=== PATIENT | female | born 1965 | race Caucasian/White ===

== ENCOUNTER 2018-03-13 11:19 | Observation (INO) ==
[2018-03-13 12:35] LABS: Baso % (Auto) 0.8 % (0.0-2.0); Eos # (Auto) 0.1 th/mm3 (0.0-0.4); Eos % (Auto) 1.6 % (0.0-4.0); Hematocrit 40.7 % (35.0-46.0); Hemoglobin 14.1 gm/dL (11.6-15.3); Lymph # (Auto) 2.6 th/mm3 (1.0-4.8); Lymph % (Auto) 43.5 % (9.0-44.0); Mean Corpuscular HGB Conc 34.7 % (32.0-36.0); Mean Corpuscular Volume 100.8 fL (80.0-100.0); Mean Platelet Volume 9.7 fL (7.0-11.0); Mono # (Auto) 0.5 th/mm3 (0.0-0.9); Mono % (Auto) 7.6 % (0.0-8.0); Neut # (Auto) 2.8 th/mm3 (1.8-7.7); Neut % (Auto) 46.5 % (16.0-70.0); Platelet Count 246 th/mm3 (150-450); Red Blood Count 4.04 mil/mm3 (4.00-5.30); Red Cell Distribution Width 14.6 % (11.6-17.2)
--- NOTE | 2018-03-13 12:44 | ED ---
HPI General Chief Complaint: Chest Pain Stated Complaint: Chest Pain Time Seen by Provider: 03/13/18 11:37 History of Present Illness HPI narrative: This is a 52-year-old female with a history of hypertension, dyslipidemia, who presents today with complaints of chest pain. Patient reportedly has been having palpitations and chest pain for several days now. She was scheduled to have a stress test done at [facility] cardiology. She states that when she arrived to have her stress test, they were doing a history and when she mentioned that she had chest pain yesterday, they sent her here for evaluation. The patient denies any chest pain at this time. She denies any shortness of breath. She reports that the pain was a 6-7 out of 10 on the pain scale. She reports it radiates to her left upper back and left neck. There is no nausea or diaphoresis. Related Data Home Medications Medication Instructions Recorded Confirmed atenolol 50 mg PO DAILY 03/13/18 03/13/18 atorvastatin 20 mg PO QPM 03/13/18 03/13/18 bupropion HCl 150 mg PO QAM 03/13/18 03/13/18 buspirone 15 mg PO TID 03/13/18 03/13/18 robefiqgcq-pmzhcuhdpeaia-pxkx 1 cap PO Q4H PRN 03/13/18 03/13/18 diazepam 2 mg PO BID PRN 03/13/18 03/13/18 hydrochlorothiazide 25 mg PO DAILY 03/13/18 03/13/18 meloxicam 7.5 mg PO DAILY 03/13/18 03/13/18 primidone 200 mg PO Q12H 03/13/18 03/13/18 Allergies Allergy/AdvReac Type Severity Reaction Status Date / Time aspirin Allergy Severe HIVES Verified 03/13/18 12:03 iodine Allergy Severe SWELLING Verified 03/13/18 12:03 morphine Allergy Severe ABDOMINAL Verified 03/13/18 12:03 PAINS potassium iodide Allergy Severe SWELLING Verified 03/13/18 12:03 povidone-iodine Allergy Severe SWELLING Verified 03/13/18 12:03 shellfish derived Allergy Severe swelling, Verified 03/13/18 12:03 throat swells sodium iodide Allergy Severe SWELLING Verified 03/13/18 12:03 sodium iodide Allergy Severe SWELLING Verified 03/13/18 12:03 hydromorphone Allergy Mild stomach Verified 03/13/18 12:03 cramps mushroom Allergy Mild GI UPSET Verified 03/13/18 12:03 codeine AdvReac Severe STOMACH Verified 03/13/18 12:03 CRAMPING Review of Systems ROS: all other systems reviewed are negative Constitutional Denies chills and Denies fever(s) Eyes Reports system reviewed and no additional complaints, except [facility] E[facility] Reports system reviewed and no additional complaints, except as [facility] Cardiovascular Reports chest pain, Denies diaphoresis, Denies irregular heart rhythm and Denies dyspnea Respiratory Denies chest congestion, Denies cough and Denies dyspnea Gastrointestinal Denies abdominal pain, Denies nausea and Denies vomiting Genitourinary Reports system reviewed and no additional complaints, except as [facility] Musculoskeletal Reports system reviewed and no additional complaints, except as [facility] Neurologic Reports system reviewed and no additional complaints, except as [facility] Medical History Medical History Chest pain (Acute) Cholecystectomy planned (Acute) Hypertension (Acute) Migraines (Acute) Tremors of nervous system (Acute) Surgical History Surgical History Previous back surgery (Acute) Social History Social History Substance History: No History of Abuse Second Hand Smoke Exposure: Yes Smoking Status: Current every day smoker Tobacco Type: Cigarettes How Often Do You Have a Drink Containing Alcohol: 2 to 4 times a month Recent Travel in [facility] within the Last 8 Weeks: No Recent Out of Country Travel within the Last 8 Weeks: No Immunization History Tetanus Immunization: Unsure Exam Narrative Exam Narrative: GENERAL: Well-developed well-nourished female in no acute respiratory distress. SKIN: Focused skin assessment warm/dry. HEAD: Atraumatic. Normocephalic. EYES: No scleral icterus. No injection or drainage. ENT: No nasal bleeding or discharge. Mucous membranes pink and moist. NECK: Trachea midline. No JVD. CARDIOVASCULAR: Sinus bradycardia with a rate in the 50s. No murmur appreciated. RESPIRATORY: No accessory muscle use. Clear to auscultation. Breath sounds equal bilaterally. GASTROINTESTINAL: Abdomen soft, non-tender, nondistended. MUSCULOSKELETAL: No obvious deformities. No clubbing. No cyanosis. No edema. NEUROLOGICAL: Awake and alert. No obvious cranial nerve deficits. Motor grossly within normal limits. Normal speech. Course Initial Documented Vital Signs Temperature 98.5 F 03/13/18 11:29 Pulse Rate 51 L 03/13/18 11:29 Respiratory Rate 18 03/13/18 11:29 Blood Pressure 174/77 H 03/13/18 11:29 Pulse Oximetry 97 03/13/18 11:29 Last Documented Vital Signs Temperature 97.9 F 03/14/18 12:00 Pulse Rate 63 03/14/18 13:00 Respiratory Rate 20 03/14/18 13:00 Blood Pressure 127/65 03/14/18 13:00 Pulse Oximetry 98 03/14/18 13:00 Medical Decision Making MDM Narrative Medical decision making narrative: 52-year-old female presents today after being sent here by [facility] cardiology. Patient was apparently scheduled to have a stress test there however had mentioned that she had chest pain the previous day. The patient was sent here for rule out and chest pain center admission. Patient's cardiac enzymes are negative. She will be admitted to the chest pain center. Case was discussed with HIRA Morales for the chest pain center. Medical Screen Exam Complete: Yes Emergency Medical Condition: Yes Differential Diagnosis Differential Diagnosis: ACS versus muscular skeletal pain versus pulmonary embolus Lab Data Result diagrams: 03/13/18 12:03 03/13/18 12:03 Lab Results 03/13/18 03/13/18 03/13/18 Range/Units 12:03 12:03 16:43 WBC 6.0 (4.0-11.0) th/mm3 RBC 4.04 (4.00-5.30) mil/mm3 Hgb 14.1 (11.6-15.3) gm/dL Hct 40.7 (35.0-46.0) % MCV 100.8 H (80.0-100.0) fL MCH 35.0 H (27.0-34.0) pg MCHC 34.7 (32.0-36.0) % RDW 14.6 (11.6-17.2) % Plt Count 246 (150-450) th/mm3 MPV 9.7 (7.0-11.0) fL Neut % (Auto) 46.5 (16.0-70.0) % Lymph % (Auto) 43.5 (9.0-44.0) % Arroyo % (Auto) 7.6 (0.0-8.0) % Eos % (Auto) 1.6 (0.0-4.0) % Baso % (Auto) 0.8 (0.0-2.0) % Neut # (Auto) 2.8 (1.8-7.7) th/mm3 Lymph # (Auto) 2.6 (1.0-4.8) th/mm3 Arroyo # (Auto) 0.5 (0.0-0.9) th/mm3 Eos # (Auto) 0.1 (0.0-0.4) th/mm3 Baso # (Auto) 0.0 (0.0-0.2) th/mm3 WBC Differential . Differential Comment Auto diff final PT (9.8-11.6) sec INR Ratio D-Dimer Quant (PE/DVT) (0.00-0.50) mg/L FEU Sodium 138 (136-145) meq/L Potassium 4.1 (3.5-5.1) meq/L Chloride 105 (98-107) meq/L Carbon Dioxide 25.4 (21.0-32.0) meq/L Anion Gap 8 (5-15) meq/L BUN 18 (7-18) mg/dL Creatinine 0.81 (0.50-1.00) mg/dL Estimated GFR 74 L (>89) mL/min Random Glucose 94 (74-106) mg/dL Calcium 9.1 (8.5-10.1) mg/dL Magnesium 2.2 (1.5-2.5) mg/dL Total Bilirubin 0.2 (0.2-1.0) mg/dL AST 21 (15-37) U/L ALT 40 (10-53) U/L Alkaline Phosphatase 93 (45-117) U/L Total Creatine Kinase 54 70 (26-192) U/L Troponin I Less than 0.02 L Less than 0.02 L (0.02-0.05) ng/mL Total Protein 6.9 (6.4-8.2) g/dL Albumin 4.0 (3.4-5.0) g/dL Triglycerides (42-150) mg/dL Cholesterol (120-200) mg/dL LDL Cholesterol, Calc (0-99) mg/dL HDL Cholesterol (40.0-60.0) mg/dL Cholesterol/HDL Ratio Ratio TSH 1.320 (0.358-3.740) uIU/mL Nasal Screen MRSA (PCR) (Negative) 03/13/18 03/13/18 03/13/18 Range/Units 16:43 16:43 16:43 WBC (4.0-11.0) th/mm3 RBC (4.00-5.30) mil/mm3 Hgb (11.6-15.3) gm/dL Hct (35.0-46.0) % MCV (80.0-100.0) fL MCH (27.0-34.0) pg MCHC (32.0-36.0) % RDW (11.6-17.2) % Plt Count (150-450) th/mm3 MPV (7.0-11.0) fL Neut % (Auto) (16.0-70.0) % Lymph % (Auto) (9.0-44.0) % Arroyo % (Auto) (0.0-8.0) % Eos % (Auto) (0.0-4.0) % Baso % (Auto) (0.0-2.0) % Neut # (Auto) (1.8-7.7) th/mm3 Lymph # (Auto) (1.0-4.8) th/mm3 Arroyo # (Auto) (0.0-0.9) th/mm3 Eos # (Auto) (0.0-0.4) th/mm3 Baso # (Auto) (0.0-0.2) th/mm3 WBC Differential Differential Comment PT 10.0 (9.8-11.6) sec INR 1.0 Ratio D-Dimer Quant (PE/DVT) Less than 0.19 (0.00-0.50) mg/L FEU Sodium (136-145) meq/L Potassium (3.5-5.1) meq/L Chloride (98-107) meq/L Carbon Dioxide (21.0-32.0) meq/L Anion Gap (5-15) meq/L BUN (7-18) mg/dL Creatinine (0.50-1.00) mg/dL Estimated GFR (>89) mL/min Random Glucose (74-106) mg/dL Calcium (8.5-10.1) mg/dL Magnesium Cancelled (1.5-2.5) mg/dL Total Bilirubin (0.2-1.0) mg/dL AST (15-37) U/L ALT (10-53) U/L Alkaline Phosphatase (45-117) U/L Total Creatine Kinase (26-192) U/L Troponin I Cancelled (0.02-0.05) ng/mL Total Protein (6.4-8.2) g/dL Albumin (3.4-5.0) g/dL Triglycerides (42-150) mg/dL Cholesterol (120-200) mg/dL LDL Cholesterol, Calc (0-99) mg/dL HDL Cholesterol (40.0-60.0) mg/dL Cholesterol/HDL Ratio Ratio TSH (0.358-3.740) uIU/mL Nasal Screen MRSA (PCR) (Negative) 03/13/18 03/14/18 03/14/18 Range/Units 21:10 06:39 08:27 WBC (4.0-11.0) th/mm3 RBC (4.00-5.30) mil/mm3 Hgb (11.6-15.3) gm/dL Hct (35.0-46.0) % MCV (80.0-100.0) fL MCH (27.0-34.0) pg MCHC (32.0-36.0) % RDW (11.6-17.2) % Plt Count (150-450) th/mm3 MPV (7.0-11.0) fL Neut % (Auto) (16.0-70.0) % Lymph % (Auto) (9.0-44.0) % Arroyo % (Auto) (0.0-8.0) % Eos % (Auto) (0.0-4.0) % Baso % (Auto) (0.0-2.0) % Neut # (Auto) (1.8-7.7) th/mm3 Lymph # (Auto) (1.0-4.8) th/mm3 Arroyo # (Auto) (0.0-0.9) th/mm3 Eos # (Auto) (0.0-0.4) th/mm3 Baso # (Auto) (0.0-0.2) th/mm3 WBC Differential Differential Comment PT (9.8-11.6) sec INR Ratio D-Dimer Quant (PE/DVT) (0.00-0.50) mg/L FEU Sodium (136-145) meq/L Potassium (3.5-5.1) meq/L Chloride (98-107) meq/L Carbon Dioxide (21.0-32.0) meq/L Anion Gap (5-15) meq/L BUN (7-18) mg/dL Creatinine (0.50-1.00) mg/dL Estimated GFR (>89) mL/min Random Glucose (74-106) mg/dL Calcium (8.5-10.1) mg/dL Magnesium (1.5-2.5) mg/dL Total Bilirubin (0.2-1.0) mg/dL AST (15-37) U/L ALT (10-53) U/L Alkaline Phosphatase (45-117) U/L Total Creatine Kinase 53 (26-192) U/L Troponin I Less than 0.02 L (0.02-0.05) ng/mL Total Protein (6.4-8.2) g/dL Albumin (3.4-5.0) g/dL Triglycerides 155 H (42-150) mg/dL Cholesterol 162 (120-200) mg/dL LDL Cholesterol, Calc 65 (0-99) mg/dL HDL Cholesterol 66.3 H (40.0-60.0) mg/dL Cholesterol/HDL Ratio 2.44 Ratio TSH (0.358-3.740) uIU/mL Nasal Screen MRSA (PCR) Not detected (Negative) Imaging Data Radiologist's impression: Chest X-Ray 03/13/18 11:51 CONCLUSION: No acute cardiopulmonary disease. Discharge Plan Discharge Disposition Patient Disposition: ED Admit(ED Internal Use Only) Discharge Condition Condition: Stable Discharge Order Discharge Orders: Discharge Order (Routine); Ordered 03/14/18 Ordered By: Lesley Eagle Cardiology Clear for Discharge (Routine); Ordered 03/13/18 Ordered By: Quincy Amaya ED Use Only Admit Order (Routine); Ordered 03/13/18 Ordered By: Roger Mancuso Discharge Details Diagnosis: Chest pain, Tobacco abuse, Hypertension, Hyperlipidemia Physicians Team ED Provider: Roger Mancuso Primary Care Provider: Michelle Rico Attending Provider: Jeanmarie Johnson Other Providers: Quincy Amaya Discharge Interventions Interventions: ED Discharge Assessment Last Done: 03/13/18 15:59 Status ED Status: Admitted Observation Patient Discharge Information Discharge Date/Time: 03/13/18 23:21
[2018-03-13 12:53] LABS: Anion Gap 8 meq/L (5-15); Aspartate Aminotransferase 21 U/L (15-37); Blood Urea Nitrogen 18 mg/dL (7-18); Calcium 9.1 mg/dL (8.5-10.1); Carbon Dioxide 25.4 meq/L (21.0-32.0); Chloride 105 meq/L (98-107); Glomerular Filtration Rate 74 mL/min (>89); Glucose,Random 94 mg/dL (74-106); Potassium 4.1 meq/L (3.5-5.1); Sodium 138 meq/L (136-145)
--- NOTE | 2018-03-13 13:03 | XR ---
EXAM DATE: 03/13/2018 1:00 PM EST AGE/SEX: 52 years / Female INDICATIONS: Shortness of breath, nausea, middle to left sided chest pain. patient also complains of pain in neck and left sided back pain. CLINICAL DATA: This is the patient's initial encounter. Patient reports that signs and symptoms have been present for 1 day and indicates a pain score of 6/10. MEDICAL/SURGICAL HISTORY: None. None. COMPARISON: [facility] [place], CHEST SINGLE AP, 12/19/2014. . FINDINGS: The lungs are clear without infiltrate, nodule, or mass. There is no appreciable pleural effusion for technique. Heart and mediastinum are unremarkable. CONCLUSION: No acute cardiopulmonary disease. Electronically signed by: Andrea Egan MD Board Certified Radiologist 03/13/2018 1:02 PM EST
[2018-03-13 13:04] LABS: Alanine Aminotransferase 40 U/L (10-53); Alkaline Phosphatase 93 U/L (45-117); Total Protein 6.9 g/dL (6.4-8.2)
[2018-03-13 13:05] LABS: Creatine Kinase 54 U/L (26-192)
--- NOTE | 2018-03-13 15:21 | P.HPCA ---
History of Present Illness Primary Care Physician: Michelle Rico MD Chief Complaint: Chest pain History of Present Illness: This is a 52-year-old female with history of hypertension, hyperlipidemia, chronic neck and back pain, and tobacco abuse that presents to ED to be evaluated for chest discomfort. Patient was at her damage inside adjuster office (Dr. Faulkner )today for stress test when had told staff that she was having chest discomfort and 2 days prior was having even more intense chest discomfort. States she was referred to her damage inside adjuster secondary to having intermittent chest discomfort for the last 2 months. Initially was occurring maybe a couple times a week but more recently is been occurring almost daily. Found nothing in particular to bring on the discomfort. At times she is short of breath and nauseous. Denies diaphoresis. States she also had a Holter monitor placed and was removed last Friday and is awaiting report from that. She has had stress test in the past. Last stress test at this facility was in 2013 and was nonischemic. History of hypertension, hyperlipidemia, chronic neck/back pain, hypothyroidism , and tobacco abuse. Denies diabetes and known CAD. She states that her mother had onset coronary disease in her 50s and at age 81 and was cardiac related. Patient continues smoke about 1/2 pack of cigarettes daily and has done so for about 35 years. Has occasional alcohol. Denies illicit drug use. - Diagnosis (1) Chest pain (2) Hypertension (3) Hyperlipidemia (4) Chronic neck and back pain (5) Tobacco abuse Review of Systems General: Patient denies fevers, chills, and recent travel. HEENT: Patient denies headache, sore throat, difficulty swallowing. Cardiovascular: Has the chest discomfort as mentioned above. Denies sensation of heart beating rapidly or irregularly. No syncope. Denies diaphoresis. Respiratory: Occasional shortness of breath. Denies inspirational chest discomfort. Denies coughing wheezing or hemoptysis. GI: Occasional nausea. Patient denies vomiting, diarrhea, abdominal pain, bloody stools. Musculoskeletal: Patient denies joint pain or edema. Denies calf pain or edema. Neurovascular: Patient denies numbness, tingling, weakness in extremities. Denies headache. Endocrine: Denies polyuria and polydipsia. Hematologic: Denies easy bruising. Skin: Denies rash or itching. PMFSH - History History Provided By: Patient - Medical History Medical History: Medical History (Last Updated 03/13/18 @ 11:37 by Jayashree Martini) Chest pain Cholecystectomy planned Hypertension Migraines Tremors of nervous system - Surgical History Surgical History: Surgical History (Last Updated 03/13/18 @ 11:37 by Jayashree Martini) Previous back surgery - Tobacco History Second Hand Smoke Exposure: Yes Tobacco Use In Past 30 Days: Yes Smoking Status: Current every day smoker Tobacco Type: Cigarettes - Alcohol History How Often Do You Have a Drink Containing Alcohol: Monthly or less - Substance Use History Substance History: No History of Abuse - Travel History Recent Travel in the [place] Within the Last 8 Weeks: No Recent Travel Out of the Country Within the Last 8 Weeks: No - Immunization History Tetanus Immunization: Unsure Medications and Allergies Active Medications: Active Medications Sodium Chloride (Ns Flush) 2 ml IV.FLUSH UNSCH PRN PRN Reason: FLUSH AFTER USING IV ACCESS Allergies Allergy/AdvReac Type Severity Reaction Status Date / Time aspirin Allergy Severe HIVES Verified 03/13/18 12:03 iodine Allergy Severe SWELLING Verified 03/13/18 12:03 morphine Allergy Severe ABDOMINAL Verified 03/13/18 12:03 PAINS potassium iodide Allergy Severe SWELLING Verified 03/13/18 12:03 povidone-iodine Allergy Severe SWELLING Verified 03/13/18 12:03 shellfish derived Allergy Severe swelling, Verified 03/13/18 12:03 throat swells sodium iodide Allergy Severe SWELLING Verified 03/13/18 12:03 sodium iodide Allergy Severe SWELLING Verified 03/13/18 12:03 hydromorphone Allergy Mild stomach Verified 03/13/18 12:03 cramps mushroom Allergy Mild GI UPSET Verified 03/13/18 12:03 codeine AdvReac Severe STOMACH Verified 03/13/18 12:03 CRAMPING Home Medications Medication Instructions Recorded Confirmed Type atenolol 50 mg PO DAILY 03/13/18 03/13/18 History atorvastatin 20 mg PO QPM 03/13/18 03/13/18 History bupropion HCl 150 mg PO QAM 03/13/18 03/13/18 History buspirone 15 mg PO TID 03/13/18 03/13/18 History agmxwipizy-csyoheqiacfgv-kvbr 1 cap PO Q4H PRN 03/13/18 03/13/18 History diazepam 2 mg PO BID PRN 03/13/18 03/13/18 History hydrochlorothiazide 25 mg PO DAILY 03/13/18 03/13/18 History primidone 200 mg PO Q12H 03/13/18 03/13/18 History Exam Vital signs: Vital Signs 03/13/18 11:29 03/13/18 11:40 03/13/18 13:28 Temperature 98.5 F Pulse Rate 51 L 54 L Respiratory Rate 18 18 18 Blood Pressure 174/77 H 144/73 H Pulse Oximetry 97 97 03/13/18 14:37 03/13/18 14:39 Temperature Pulse Rate 52 L Respiratory Rate 21 Blood Pressure 141/73 H Pulse Oximetry 100 Intake & Output 03/12/18 03/13/18 03/13/18 18:59 06:59 18:59 Weight 98.883 kg Narrative: GENERAL: This is a well-nourished, well-developed patient, in no apparent distress. Patient speaks in clear complete sentences. Patient is pleasant. HEENT: Head is atraumatic and normocephalic. Neck is supple without lymphadenopathy and trachea is midline. No JVD or carotid bruits. CARDIOVASCULAR: Regular rate and rhythm without murmurs, gallops, or rubs. RESPIRATORY: Clear to auscultation. Breath sounds equal bilaterally. No wheezes , rales, or rhonchi. Chest wall is nontender. No use of accessory muscles. GASTROINTESTINAL: Abdomen is nontender, nondistended. Abdomen soft. No obvious pulsatile mass or bruit. No CVA tenderness. Strong femoral pulses bilaterally. Normal bowel sounds in all quadrants. MUSCULOSKELETAL: Patient is moving upper and lower extremities freely. No calf tenderness or edema, no Homans sign. Strong pulses in upper and lower extremities. NEUROLOGICAL: Patient is alert and oriented. Cranial nerves 2-12 are grossly intact. No focal deficits and speech is clear. SKIN: No rash and turgor is normal. Results 03/13/18 12:03 03/13/18 12:03 Cardiac Enzymes 03/13/18 Range/Units 12:03 AST 21 (15-37) U/L Troponin I Less than 0.02 L (0.02-0.05) ng/mL CBC 03/13/18 Range/Units 12:03 WBC 6.0 (4.0-11.0) th/mm3 RBC 4.04 (4.00-5.30) mil/mm3 Hgb 14.1 (11.6-15.3) gm/dL Hct 40.7 (35.0-46.0) % Plt Count 246 (150-450) th/mm3 Neut # (Auto) 2.8 (1.8-7.7) th/mm3 Lymph # (Auto) 2.6 (1.0-4.8) th/mm3 Ceiba # (Auto) 0.5 (0.0-0.9) th/mm3 Eos # (Auto) 0.1 (0.0-0.4) th/mm3 Baso # (Auto) 0.0 (0.0-0.2) th/mm3 Comprehensive Metabolic Panel 03/13/18 Range/Units 12:03 Sodium 138 (136-145) meq/L Potassium 4.1 (3.5-5.1) meq/L Chloride 105 (98-107) meq/L Carbon Dioxide 25.4 (21.0-32.0) meq/L BUN 18 (7-18) mg/dL Creatinine 0.81 (0.50-1.00) mg/dL Calcium 9.1 (8.5-10.1) mg/dL AST 21 (15-37) U/L ALT 40 (10-53) U/L Alkaline Phosphatase 93 (45-117) U/L Total Protein 6.9 (6.4-8.2) g/dL Albumin 4.0 (3.4-5.0) g/dL Intake and Output 03/13/18 03/13/18 03/13/18 06:59 14:59 22:59 Other: Weight 98.883 kg Patient Weight 03/14/18 06:59 Weight 98.883 kg - Imaging and Cardiology Imaging: Impressions Chest X-Ray 03/13/18 11:51 CONCLUSION: No acute cardiopulmonary disease. EKG interpretations - EKG EKG shows: bradycardia (Initial EKG sinus bradycardia rate of [address] segment depressions or elevations.) Caprini VTE Risk Assessment Caprini VTE Risk Assessment: No/Low Risk (score <= 1) Caprini Risk Assessment Model: Point Value = 1 Point Value = 2 Point Value = 3 Point Value = 5 Age 41-60 Minor surgery BMI > 25 kg/m2 Swollen legs Varicose veins or History of unexplained or recurrent spontaneous Oral contraceptives or hormone replacement Sepsis (< 1 month) Serious lung disease, including pneumonia (< 1 month) Abnormal pulmonary function Acute myocardial infarction Congestive heart failure (< 1 month) History of inflammatory bowel disease Medical patient at bed rest Age 61-74 Arthroscopic surgery Major open surgery (> 45 min) Laparoscopic surgery (> 45 min) Malignancy Confined to bed (> 72 hours) Immobilizing plaster cast Central venous access Age >= 75 History of VTE Family history of VTE Factor V Leiden Prothrombin [id number] Lupus anticoagulant Anticardiolipin antibodies Elevated serum homocysteine Heparin-induced thrombocytopenia Other congenital or acquired thrombophilia Stroke (< 1 month) Elective arthroplasty Hip, pelvis, or leg fracture Acute spinal cord injury (< 1 month) Prophylaxis Regimen: Total Risk Factor Score Risk Level Prophylaxis Regimen 0-1 Low Early ambulation 2 Moderate Order ONE of the following: *Sequential Compression Device (SCD) *Heparin 5000 units SQ BID 3-4 Higher Order ONE of the following medications: *Heparin 5000 units SQ TID *Enoxaparin/Lovenox 40 mg SQ daily (WT < 150 kg, CrCl > 30 mL/min) *Enoxaparin/Lovenox 30 mg SQ daily (WT < 150 kg, CrCl > 10-29 mL/min) *Enoxaparin/Lovenox 30 mg SQ BID (WT < 150 kg, CrCl > 30 mL/min) AND/OR *Sequential Compression Device (SCD) 5 or more Highest Order ONE of the following medications: *Heparin 5000 units SQ TID (Preferred with Epidurals) *Enoxaparin/Lovenox 40 mg SQ daily (WT < 150 kg, CrCl > 30 mL/min) *Enoxaparin/Lovenox 30 mg SQ daily (WT < 150 kg, CrCl > 10-29 mL/min) *Enoxaparin/Lovenox 30 mg SQ BID (WT < 150 kg, CrCl > 30 mL/min) AND *Sequential Compression Device (SCD) Assessment and Plan - Assessment (1) Chest pain Code(s): R07.9 - Chest pain, unspecified Status: Acute (2) Hypertension Code(s): I10 - Essential (primary) hypertension Status: Acute (3) Hyperlipidemia Code(s): E78.5 - Hyperlipidemia, unspecified Status: Acute (4) Chronic neck and back pain Code(s): M54.2 - Cervicalgia; M54.9 - Dorsalgia, unspecified; G89.29 - Other chronic pain Status: Acute (5) Tobacco abuse Code(s): Z72.0 - Tobacco use Status: Acute - Plan * Chest pain: Patient has had first set of cardiac enzymes and EKGs and has been seen by Dr. Israel Molina of cardiology in the chest pain center. Her EKG is okay and first troponin is normal after having an extended period of time of chest discomfort. * Hypertension: She cannot recall the name of the medication that she takes but states that it does control her blood pressure. She should resume this. * Hyperlipidemia: Resume her medication. * Chronic neck and back pain: Continue her medication. * Tobacco abuse: Patient counseled on the importance of smoking cessation. Patient is stable at this time. She is agreeable to this plan. Patient developed worsening chest discomfort, shortness of breath, diaphoresis from walking from OD to the stress room in [facility]. She was reevaluated. Patient will now be admitted to medicine with consult to cardiology for likely cardiac catheterization. Amlodipine, beta-xena, nitro ointment, statin, and aspirin will be started.
[2018-03-13] MEDS ORDERED: ALPRAZolam 0.25 MG Tablet PO PRN (15:35)
[2018-03-13] MEDS ORDERED: diazePAM 2 MG Tablet PO PRN (15:44)
[2018-03-13 17:36] LABS: Creatine Kinase 70 U/L (26-192)
[2018-03-13 17:41] LABS: Magnesium 2.2 mg/dL (1.5-2.5)
[2018-03-13] MEDS ORDERED: BUSPIRONE 15 MG PO SCH (18:00)
[2018-03-13] MEDS: buPROPion 150 MG 12 HR Tablet PO SCH (18:13)
[2018-03-13] MEDS: Primidone 50 MG Tablet PO SCH ×2 (18:13→22:56)
[2018-03-13] MEDS: amLODIPine 5 MG Tablet PO SCH (18:13)
[2018-03-13] MEDS: Metoprolol Tartrate 25 MG Tablet PO SCH (18:13)
[2018-03-13] MEDS ORDERED: Iohexol 350 MG/ML 50 ML Vial (for Cath Lab) IVCONTRAST ONE (18:30)
--- NOTE | 2018-03-13 18:36 | MB ---
cc: Quincy Amaya MD DATE: 03/13/2018 REASON FOR CONSULTATION: Cardiac catheterization. HISTORY OF PRESENT ILLNESS: The patient is a 52-year-old white female, followed in the office by Dr. Benji Faulkner, with a history of hypertension and hyperlipidemia, who was sent to the hospital today due to ongoing chest discomfort. She was to undergo a stress test when she told staff that she was having ongoing chest discomfort, so she was sent to the hospital for further evaluation and treatment. For about the past 8 weeks, she has had occasional episodes of substernal and left parasternal chest discomfort described as "sharp and pressure." The longest episode lasted 6 hours, 2 days ago. Associated symptoms include shortness of breath and nausea without diaphoresis. Exertion inconsistently precipitates the chest discomfort. She denies pleurisy, syncope, or near syncope. Infrequently, she experiences fleeting fluttering palpitations. Occasionally, she experiences dependent edema. At times, she has had mild transient lightheadedness. PAST MEDICAL HISTORY: 1. Hypertension. 2. Hyperlipidemia. 3. Migraine headaches. PAST SURGICAL HISTORY: Cholecystectomy. HOME CARDIAC MEDICATIONS: 1. Hydrochlorothiazide 25 mg daily. 2. Atorvastatin 20 mg at bedtime. 3. Tenormin 50 mg daily. ALLERGIES: ASPIRIN, IODINE, MORPHINE, SHELLFISH, HYDROMORPHONE, CODEINE. FAMILY HISTORY: The patient's mother sustained a number of myocardial infarctions beginning in her 40s. SOCIAL HISTORY: The patient smokes a little less than 1/2 pack of cigarettes per day. She denies drug or alcohol abuse. REVIEW OF SYSTEMS: As in the history of present illness. Otherwise, negative or noncontributory. She currently denies headache, abdominal pain, melena, dyspepsia, bright red blood per rectum. PHYSICAL EXAMINATION: VITAL SIGNS: Her blood pressure is 139/72 with a pulse of 50, respirations 20. GENERAL: She is a well-developed, well-nourished white female, in no acute distress. NECK: Jugular venous pressure is normal. Carotid pulses are 2+ bilaterally and without bruits. CHEST: Clear lungs mayberry. CARDIAC: She has a bradycardic, regular rhythm without S3, S4, or murmur. ABDOMEN: She has a soft, nontender abdomen. Bowel sounds are present. There is no definite hepatosplenomegaly. EXTREMITIES: No clubbing, cyanosis, or edema. Peripheral pulses are normal throughout. LABORATORY DATA: EKG shows sinus bradycardia. Otherwise, normal EKG. Chest x-ray shows no acute disease. LABORATORY DATA: Normal CBC, normal basic metabolic profile, negative cardiac enzymes. IMPRESSION: Symptoms suggestive of ongoing and unstable angina in this 52-year-old white female with a history of a number of risk factors for coronary artery disease including hypertension, hyperlipidemia, tobacco abuse, family history. I have been asked to see the patient for possible cardiac catheterization. At this point, I would agree with the need for this test. She has had a number of symptoms in the past few days suggestive of angina at rest including prolonged episodes. The nature of cardiac catheterization and the potential risks including, but not limited to , myocardial infarction, stroke, arrhythmia, bleeding, infection, and renal failure have been outlined to the patient. She agrees to proceed. RECOMMENDATIONS: Proceed with cardiac catheterization today. MD KASSANDRA Camejo/miky , 05:54 PM , 06:03 PM MTDTeresa
[2018-03-13] MEDS ORDERED: Heparin/NS PF Inj 1,000 ML ONE (18:39)
[2018-03-13] MEDS ORDERED: fentaNYL Citrate Inj 100 MCG/2 ML Ampul ONE (18:39)
[2018-03-13] MEDS ORDERED: Heparin 10,000 UNITS/10 ML Vial (for IV use) ONE (18:40)
[2018-03-13] MEDS ORDERED: Famotidine PF Inj 20 MG/2 ML Vial ONE (18:40)
[2018-03-13] MEDS ORDERED: Hydrocortisone Sod Succinate 100 MG Vial ONE (18:40)
--- NOTE | 2018-03-13 20:32 | CATHPROC ---
[employer] HIS Report Study Information Study Number Admission Scheduled Start Study Start [id number] Mar 13 2018 2:00PM 03/13/2018 Mar 13 2018 6:11PM Study Type Yeoman Service Left/Possible PCI Cardiac Catheterization Admit Source Facility Department Emergency department [facility] Recreational Counselor Physician and Clinical Staff Initial Quincy Borrego Mill Hand Martha Allred,MINNIE Mill Handnatalie Aggarwal RN, Walter Mill HandTeena Lara,MINNIE Recorder Oanh Álvarze,FINANCIAL BUSINESS ANALYST TECH2 Scrub Jennifer Coyle,RT(R) (BS) Procedures Performed Procedure Location (Site) Vessel Name Coronary Angiograms LCA Left Coronary Coronary Angiograms RCA Right Coronary LV Gram-hand inj. LV LV Ventricle Equipment Time Road Hogger Operator Description Size Mfg Part Number Used/Scraped TRANSDUCER, TRUWAVE [id number] 18:19 [employer] * Used W/STOCKCOCK *[id number] 18:19 MALLINCKRODT SYRINGE, ANGIOMAT 150ML 150ML *[id number] Used 2S MEDICAL CONCEPT DRAPE, RADIAL FEMORAL FULL 18:19 * [id number] *[id number] Used DEVELOPMENT BODY [id number] 18:19 [employer] BLANKET,WARM AIR CCL * Used *[id number] 18:19 [employer] PACK, CCL CUSTOM * Used *[id number] 18:19 [employer] SUPPORT, ARTERIAL ADULT [id number] *[id number] Used [id number] 18:19 [employer] PACER PEN, SKIN DUAL W/ RULER * Used *[id number] BAND, RADIAL COMPRESSION TR [id number] 19:27 [employer] MEDICAL 24CM Used SHORT 24 *[id number] SHEATH, FR6 RADIAL PRELUDE 18:19 [employer] FR 6 [id number] Used EASE 11CM [id number] 18:19 [employer] WIRE, EXCHANGE 260CM 3MMJ 260CM Used *[id number] 18:19 NAMIC MANIFOLD, 4 PORT * Used *[id number] 18:19 [employer] OMNIPAQUE, 350 MG, 150ML 150ML [id number] Used CATHETER, FR5 OPTITORQUE [id number] 19:12 [employer] MEDICAL FR 5 Used RADIAL TIG 4.0 *[id number] History: Current Medications Medication Dosage/Unit Route Frequency Last Date/Time Taken HCTZ Statins (any) Beta Daniel History: Allergies Allergy Reaction potassium iodide SWELLING sodium iodide SWELLING morphine ABDOMINAL PAINS codeine STOMACH CRAMPING aspirin HIVES iodine SWELLING povidone-iodine SWELLING hydromorphone stomach cramps shellfish derived swelling, throat swells mushroom GI UPSET History: Risk Factors Family History of Hypertension Dyslipidemia Previous [place] Previous Heart Failure Premature CAD Yes Yes Yes No No Prior Valve Prior PCI Prior CABG Surgery No No No Cerebrovascular Peripheral Artery Chronic Lung On Dialysis Diabetes Disease Disease Disease No No No No No History: Symptoms/Diagnosis Selection Items Chest pain Palpitations History: Stress Tests Stress or Imaging Studies Performed No History: Other Current Smoker Method Packs a Day Years Used Pack Years Yes Cigarettes 1 35 35 Labs Hgb (g/dl) Hct (%) WBC (l/cumm) Platelets (thousands) 11.60-17.00 35.00-51.00 4.00-11.00 150.00-450.00 14.1 40.7 6 246 Glucose (mg/dl) BUN (mg/dl) Creatinine (mg/dl) BUN:Creatinine (1:x) 74.00-106.00 7.00-18.00 0.50-1.30 10.00-20.00 94 1.8 0.8 2.3 Na (meq/l) K (meq/l) 136.00-145.00 3.50-5.10 138 4.1 INR (PTT:PT) 0.90-1.10 1 Troponin I (ng/ml) CPK (u/l) CPK-MB (ng/ML) 0.02-0.05 26.00-308.00 0.50-3.60 0.02 70 Not Drawn Medication Medication Total Dose (Bolus/Oral) Medication Total Dosage/Unit 1% XYLOCAINE 5 mL ATIVAN 1 mg BENADRYL 50 mg FENTANYL 50 mcg PEPCID 20 mg RADIAL COCKTAIL 5 mL (Bolus) SOLU-MEDROL 125 mg VERSED 2 mg Medications (Bolus/Oral) Medication Time Given Dosage/Unit Administered By Reason SOLU-MEDROL 03/13/2018 7:05:50 PM 125 mg Hesher, Teena 125 mg SOLU-MEDROL given in lab by Teena Guthrie, RN in Left Antecubital via Peripheral IV. Ordered by Quincy Amaya. PEPCID 03/13/2018 7:06:16 PM 20 mg Hesher, Teena 20 mg PEPCID given in lab by Teena Guthrie RN in Left Antecubital via Peripheral IV. Ordered by Quincy Felix. BENADRYL 03/13/2018 7:07:37 PM 50 mg Teena Guthrie 50 mg BENADRYL given in lab by Teena Guthrie RN in Left Antecubital via Peripheral IV. Ordered by Quincy Boucher. VERSED 03/13/2018 7:14:32 PM 2 mg Walter Aggarwal RN 2 mg VERSED given in lab by Walter Aggarwal RN in Left Antecubital via Peripheral IV. Ordered by Quincy Amaya. 1% XYLOCAINE 03/13/2018 7:14:38 PM 5 mL Quincy Amaya 5 mL 1% XYLOCAINE given in lab by Quincy Amaya in Right Radial via Subcutaneous. Ordered by Johann Amaya enn. FENTANYL 03/13/2018 7:15:46 PM 50 mcg Walter Aggarwal RN 50 mcg FENTANYL given in lab by Walter Aggarwal RN in Left Antecubital via Peripheral IV. Ordered by Quincy Felix. RADIAL COCKTAIL 03/13/2018 7:23:31 PM 5 mL (Bolus) Quincy Amaya 5 mL (Bolus) RADIAL COCKTAIL given in lab by Quincy Amaya in Right Radial via Radial. Using [Solution Name]. Ordered by Quincy Amaya. Reason: Ntg 200mcg Heparin 2500U. ATIVAN 03/13/2018 8:05:16 PM 1 mg Walter Aggarwal RN 1 mg ATIVAN given in lab by Wlater Aggarwal RN in Left Antecubital via Peripheral IV. Ordered by Quincy Amaya. Medication (Drip) Medication Time Given Dosage/Unit Concentration/Unit Diluent (ml) Solution IV Solutions 03/13/2018 6:40:18 PM 0 mL (IV) 500 NaCl .9 IV Solutions given in lab by Teena Guthrie RN in Left Antecubital via Peripheral IV. Pump/Drip Flow = 20 ml/hr using NaCl .9. Ordered by Quincy Amaya. Initial Case Assessment Cardiovascular HR Rhythm NIBP Chest Pain 49 sb 145/74 0 Circulatory - Right Pulses Dorsalis Pedis Femoral Radial 3 3 3 Scale (0,1,2,3,4,d) Scale (0,1,2,3,4,d) Neurological State Oriented to time-place- Alert Moves all extremities person Respiration - General Respiration Rate SpO2 (%) (B/min) 17 99 Final Case Assessment Cardiovascular HR Rhythm NIBP Chest Pain 46 sb 128/55 0 Circulatory - Right Pulses Dorsalis Pedis Femoral Radial 3 3 3 Scale (0,1,2,3,4,d) Scale (0,1,2,3,4,d) Neurological State Oriented to time-place- Alert Moves all extremities person Respiration - General Respiration Rate SpO2 (%) (B/min) 14 97 Chronological Log Time Study Chronological Log 18:30:33 Patient arrived via Bed. 18:30:34 Patient Name, D.O.B, / Armband Verified By R.N. 18:30:35 Consent signed by the physician and the patient and verified by the Recreational Counselor staff. 18:30:36 Pre-op and post- op instructions given; patient acknowledges understanding of instructions. 18:30:36 Verbal Stimulation=2 Physical Stimulation=2 Airway=2 Respiration=2 TOTAL=8. (0=absent, 1=li mited, 2=present) Vitals capture started with the following parameters, Patient=Adult, Interval=5 min, Initial Pr natllx=173 mmHg, 18:36:54 Deflation Rate=5 mmHg, Cuff placed on Right Arm 18:37:41 HR=49 bpm, BSJP=149/74 mmhg, SpO2=98.0 %, Resp=9 B/min Assessment: Initial Case, HR=49 BPM, Rhythm=sb, NQWT=467/74 mmhg, Chest Pain=0 Right Pulses: Pa Ped=3, Femoral=3, Radial=3 18:38:09 Neurological: State=Alert, Ox3, BABCOCK Respiration: Resp=17 B/min, SpO2=99 % 18:38:17 Reference ECG taken 18:39:49 Presedation assessment performed by Recreational Counselor RN. 18:39:50 Positive Allens test performed on the right radial and ulnar artery. 18:40:04 Patient has been NPO for More than 6Hrs. 18:40:05 Skin Breakdown-none 18:40:09 Shannon Prominences Protected 18:40:09 A # 20 IV was noted in the Antecubital (left). Grade = 0 IV Solutions given in lab by Teena Guthrie, RN in Left Antecubital via Peripheral IV. Pump/Dri p Flow = 20 ml/hr using 18:40:18 NaCl .9. Ordered by Quincy Amaya. 18:40:43 History and physical on the chart or being dictated. 18:43:23 HR=48 bpm, RFDB=326/73 mmhg, SpO2=98.0 %, Resp=14 B/min 18:47:39 HR=52 bpm, XMHM=271/81 mmhg, SpO2=98.0 %, Resp=17 B/min 18:53:19 HR=46 bpm, YFUD=721/83 mmhg, SpO2=99.0 %, Resp=26 B/min, Pain=0, Leroy=10, Meyer=2 18:57:51 Vitals capture stopped. 19:00:04 Right Radial and groin(s) prepped with 2% chlorhexidine, and draped after a 3 min. waiting time. 125 mg SOLU-MEDROL given in lab by Teena Guthrie, MINNIE in Left Antecubital via Peripheral IV. Or dered by Monique 19:05:50 Quincy. 19:06:01 paged 19:06:16 20 mg PEPCID given in lab by Teena Guthrie, MINNIE in Left Antecubital via Peripheral IV. Orde red by Quincy Amaya. Vitals capture started with the following parameters, Patient=Adult, Interval=5 min, Initial Pr itcgrn=230 mmHg, 19:06:28 Deflation Rate=5 mmHg, Cuff placed on Right Arm 19:07:08 MD responded 19:07:12 HR=46 bpm, KAFC=900/72 mmhg, HlF0=256.0 %, Resp=10 B/min 19:07:37 50 mg BENADRYL given in lab by Teena Guthrie, MINNIE in Left Antecubital via Peripheral IV. Or dered by Quincy Amaya. 19:08:39 Pressure channel 1 zeroed. 19:12:21 MD arrived. 19:12:52 HR=63 bpm, KOKD=369/67 mmhg, DmK1=983.0 % Time Out. Correct patient, correct procedure, correct physician, labs, allergies, and equipment verified with farm laborer 19:14:10 team present. Fire risk assesment completed (see hard stop sheet for coding). Time Out Conc urred by and individual staff in procedure. 19:14:32 2 mg VERSED given in lab by Walter Aggarwal RN in Left Antecubital via Peripheral IV. Ordered by Quincy Amaya. 19:14:37 Case Start 19:14:38 5 mL 1% XYLOCAINE given in lab by Quincy Amaya in Right Radial via Subcutaneous. Ordered by Quincy Amaya. 19:15:46 50 mcg FENTANYL given in lab by Walter Aggarwal RN in Left Antecubital via Peripheral IV. Orde red by Quincy Amaya. 19:17:12 HR=54 bpm, YXAI=049/60 mmhg, SpO2=93.0 %, Resp=19 B/min 19:22:05 HR=49 bpm, FHSX=011/57 mmhg, SpO2=94.0 %, Resp=22 B/min 19:22:06 Access site was Right Radial Artery . Using ultrasound guidance. A SHEATH, FR6 RADIAL PRELUDE EASE 11CM FR 6 was advanced into the Radial (right) using the Perc utaneous 19:23:01 technique. 5 mL (Bolus) RADIAL COCKTAIL given in lab by Quincy Amaya in Right Radial via Radial. Using [So lution Name]. Ordered 19:23:31 by Quincy Amaya. Reason: Ntg 200mcg Heparin 2500U. A CATHETER, FR5 OPTITORQUE RADIAL TIG 4.0 FR 5 was advanced over a wire. OMNIPAQUE, 350 MG, 150 ML 150ML 19:23:44 was used for injections. Recorded Pressure: Ao, HR=54, Condition=Condition 1 19:24:35 (Aorta) Ao 111/62/82 19:24:52 The LCA was injected and visualized at various angles. OMNIPAQUE, 350 MG, 150ML 150ML used . 19:26:20 The RCA was injected and visualized at various angles. OMNIPAQUE, 350 MG, 150ML 150ML used . 19:26:51 After removing the current catheter a catheter was advanced over a WIRE, EXCHANGE 260CM 3MM J 260CM. 19:27:11 NW=992 bpm, XJQR=308/44 mmhg, SpO2=95.0 %, Resp=17 B/min Recorded Pressure: LV, HR=99, Condition=Condition 1 19:28:08 (Left Ventricle) LV 132/7/16 19:28:12 The LV was manually injected with 10 cc's and visualized. OMNIPAQUE, 350 MG, 150ML 150ML us ed. Recorded Pressure: LV, Ao, HR=73, Condition=Condition 1 19:28:27 (Left Ventricle) LV 119/5/14, (Aorta) Ao 122/57/82 19:29:38 Case End (Physician broke scrub) Radial Compression Device Used. 11 mLs of air placed in BAND, RADIAL COMPRESSION TR SHORT 24 24 CM. Affected 19:31:10 hand 99 % O2 saturation. 19:32:46 HR=48 bpm, PDLU=507/55 mmhg, SpO2=96.0 %, Resp=11 B/min Assessment: Final Case, HR=46 BPM, Rhythm=sb, ISJJ=414/55 mmhg, Chest Pain=0 Right Pulses: Pa Ped=3, Femoral=3, Radial=3 19:33:40 Neurological: State=Alert, Ox3, BABCOCK Respiration: Resp=14 B/min, SpO2=97 % 19:37:07 HR=43 bpm, QAGZ=496/64 mmhg, SpO2=99.0 %, Resp=14 B/min 19:40:20 Vitals capture stopped. 19:41:18 Patient moved to bed Vitals capture started with the following parameters, Patient=Adult, Interval=5 min, Initial Pr kchjbm=330 mmHg, 19:51:00 Deflation Rate=5 mmHg, Cuff placed on Right Arm 19:51:48 Patient having tremors. 19:52:53 NIBP STAT measurement started. 19:53:32 Vitals capture stopped. 19:55:37 NIBP STAT measurement started. 19:56:18 Vitals capture stopped. 19:56:47 NIBP STAT measurement started. 19:58:31 AL=906 bpm, BXLL=113/67 mmhg, SpO2=98.0 %, Resp=13 B/min 20:05:16 1 mg ATIVAN given in lab by Walter Aggarwal RN in Left Antecubital via Peripheral IV. Ordered by Quincy Amaya. 20:11:27 Tremors subsided. 20:11:57 Patient transported to [facility] End Study - Contrast Media Used In Study Contrast Total Opened (mL) Total Used (mL) Total Wasted (mL) Omnipaque 350 40 40 0 End Study - Maximum Contrast Load Max Contrast Load (mL) 619.3 End Study - Radiation Exposure Fluoro Time Fluoro Dose (mGy) Cine Dose (uGym2) (minutes) 2.0 638 3882 End Study - Sheaths Sheaths Pulled By Sheath Hold Time (min) Jennifer Coyle End Study - Patient Disposition Complications Transferred To Interventional Outcome No Critical Care Bed No attempt made
--- NOTE | 2018-03-13 20:34 | MA ---
cc: Quincy Amaya MD, Ryan DATE: 03/13/2018 PROCEDURE: Left heart catheterization, selective coronary angiography, left ventriculography. PROCEDURE NOTES: The patient was brought to the cardiac catheterization laboratory in a fasting state after having signed informed consent. The right radial region was prepped and draped as per policy and anesthetized with 1% lidocaine. Arterial access was obtained via the right radial artery and a 6-Welsh sheath placed. Coronary arteriography and left ventriculography were done using a Beverly catheter. There were no apparent immediate complications. A radial artery compression band was applied to her right wrist at the end of the case to achieve good hemostasis. HEMODYNAMIC DATA: Left ventricle 110, with an end diastolic pressure of 12, aorta 110/60 with a mean of 81. There was no significant transvalvular aortic gradient on pullback of the pigtail catheter. CORONARY ARTERIOGRAPHY: The left main is normal. The left anterior descending is a medium-sized vessel giving rise to multiple small diagonals. There is diffuse up to 20% stenosis in the proximal LAD. The mid to distal LAD is normal. The left circumflex is a small vessel giving rise to a relatively large obtuse marginal. This obtuse marginal has 20% ostial stenosis. The rest of the left circumflex is normal. The right coronary artery is a medium size dominant vessel with diffuse proximal disease resulting in up to 10% stenosis. LEFT VENTRICULOGRAPHY: Contrast injection of the left ventricle is somewhat suboptimal. No definite segmental wall motion abnormalities are seen. Ejection fraction is estimated at 65%. CONCLUSIONS: 1. Overall, mild coronary artery disease. 2. Right dominant system. 3. Normal left ventricular function with estimated ejection fraction of 65%. MD KASSANDRA Camejo/fly , 07:34 PM , 07:39 PM
[2018-03-13 21:52] LABS: Creatine Kinase 53 U/L (26-192)
[2018-03-13] MEDS: Sod Chloride 0.9% Inj 1,000 ML IV.CONT SCH (22:35)
[2018-03-14] MEDS: Primidone 50 MG Tablet PO SCH ×2 (06:36→08:43)
[2018-03-14] MEDS: Metoprolol Tartrate 25 MG Tablet PO SCH (06:38)
[2018-03-14] MEDS: Sod Chloride 0.9% Inj 1,000 ML IV.CONT SCH (07:48)
[2018-03-14] MEDS: buPROPion 150 MG 12 HR Tablet PO SCH (08:43)
[2018-03-14] MEDS ORDERED: Aspirin 325 MG Tablet PO SCH (09:00)
[2018-03-14] MEDS ORDERED: hydroCHLOROthiazide 25 MG Tablet PO SCH (09:00)
[2018-03-14 09:25] LABS: Chol/HDL Ratio 2.44 Ratio; HDL Cholesterol 66.3 mg/dL (40.0-60.0)
[2018-03-14] MEDS: amLODIPine 5 MG Tablet PO SCH (10:12)
[2018-03-14 10:22] VITALS: O2SAT 98
[2018-03-14] MEDS ORDERED: Acetaminophen 500 MG Tablet PO ONE (10:45)
--- NOTE | 2018-03-14 11:59 | P.DS ---
DS: Providers Date of admission: 03/13/18 23:21 Primary care physician: Michelle Rico MD Consults: 03/13/18 15:55 Consult to Cardiology Routine Consulting Provider: Quincy Chavez Does the patient have a Spud Sorter who follows them?: Yes Preferred [employer]:: Quincy Chavez Reason for Consultation: Unstable angina. Patient follows Dr. Faulkner. Notified:: Office Spoke with:: TE Date Notified:: 03/13/18 Time Notified:: 16:21 Comments:: EXPLAINED TO TE THIS IS A [facility] PATIENT BUT WANTS DR CHAVEZ Ordering Provider: ABRAN Brief History from admission: This is a 52-year-old female with history of hypertension, hyperlipidemia, chronic neck and back pain, and tobacco abuse that presents to ED to be evaluated for chest discomfort. Patient was at her fashion consultant sales office (Dr. Faulkner )today for stress test when had told staff that she was having chest discomfort and 2 days prior was having even more intense chest discomfort. States she was referred to her fashion consultant sales secondary to having intermittent chest discomfort for the last 2 months. Initially was occurring maybe a couple times a week but more recently is been occurring almost daily. Found nothing in particular to bring on the discomfort. At times she is short of breath and nauseous. Denies diaphoresis. States she also had a Holter monitor placed and was removed last Friday and is awaiting report from that. She has had stress test in the past. Last stress test at this facility was in 2013 and was nonischemic. History of hypertension, hyperlipidemia, chronic neck/back pain, hypothyroidism , and tobacco abuse. Denies diabetes and known CAD. She states that her mother had onset coronary disease in her 50s and at age 81 and was cardiac related. Patient continues smoke about 1/2 pack of cigarettes daily and has done so for about 35 years. Has occasional alcohol. Denies illicit drug use. DS: Diagnosis Discharge Diagnosis (1) Chest pain: Status: Acute (2) Hypertension: Status: Acute (3) Hyperlipidemia: Status: Acute (4) Chronic neck and back pain: Status: Acute (5) Tobacco abuse: Status: Acute DS: Summary Chest pain: S/P cardiac catheterization 03/13/[address] Chavez 1. Overall, mild coronary artery disease. 2. Right dominant system. 3. Normal left ventricular function with estimated ejection fraction of 65% Patient cleared for DC from cardiology standpoint Patient follows with Dr. Faulkner as an outpatient Patient to F/U with Dr. Faulkner after DC Dr. Johnson discussed with patient that anxiety is a possible contributing factor to her chest pain. Patient stated that she will follow up with her psychologist as well Dr. Johnson also encouraged patient to walk for exercise Hypertension: Continue patient's home atenolol Hyperlipidemia: continue patient's home atorvastatin LDL 65 Chronic neck and back pain: Continue her medication. Tobacco abuse: Patient counseled on the importance of smoking cessation. Time Spent with Patient Total time spent providing and/or coordinating discharge services: Quality: VTE Deep Vein Thrombosis/Pulmonary Embolism Present on Admission: No Exam Narrative Exam Narrative: GENERAL: This is a obese, well-developed patient, in no apparent distress. CARDIOVASCULAR: Regular rate and rhythm RESPIRATORY: Clear to auscultation. Breath sounds equal bilaterally. GASTROINTESTINAL: Abdomen soft, non-tender, nondistended. Normal active bowel sounds MUSCULOSKELETAL: Extremities without clubbing, cyanosis, or edema. NEURO: Alert & Oriented x4 to person, place, time, situation. Moves all ext x4 Results Labs on day of discharge: Labs from last 24 hours 03/14/18 03/14/18 03/13/18 08:27 06:39 21:10 WBC RBC Hgb Hct MCV MCH MCHC RDW Plt Count MPV Neut % (Auto) Lymph % (Auto) [place] % (Auto) Eos % (Auto) Baso % (Auto) Neut # (Auto) Lymph # (Auto) [place] # (Auto) Eos # (Auto) Baso # (Auto) WBC Differential Differential Comment PT INR D-Dimer Quant (PE/DVT) Sodium Potassium Chloride Carbon Dioxide Anion Gap BUN Creatinine Estimated GFR Random Glucose Calcium Magnesium Total Bilirubin AST ALT Alkaline Phosphatase Total Creatine Kinase 53 Troponin I Less than 0.02 L Total Protein Albumin Triglycerides 155 H Cholesterol 162 LDL Cholesterol, Calc 65 HDL Cholesterol 66.3 H Cholesterol/HDL Ratio 2.44 TSH Nasal Screen MRSA (PCR) Not detected 03/13/18 03/13/18 03/13/18 16:43 16:43 16:43 WBC RBC Hgb Hct MCV MCH MCHC RDW Plt Count MPV Neut % (Auto) Lymph % (Auto) [place] % (Auto) Eos % (Auto) Baso % (Auto) Neut # (Auto) Lymph # (Auto) [place] # (Auto) Eos # (Auto) Baso # (Auto) WBC Differential Differential Comment PT 10.0 INR 1.0 D-Dimer Quant (PE/DVT) Less than 0.19 Sodium Potassium Chloride Carbon Dioxide Anion Gap BUN Creatinine Estimated GFR Random Glucose Calcium Magnesium Cancelled Total Bilirubin AST ALT Alkaline Phosphatase Total Creatine Kinase Troponin I Cancelled Total Protein Albumin Triglycerides Cholesterol LDL Cholesterol, Calc HDL Cholesterol Cholesterol/HDL Ratio TSH Nasal Screen MRSA (PCR) 03/13/18 03/13/18 03/13/18 16:43 12:03 12:03 WBC 6.0 RBC 4.04 Hgb 14.1 Hct 40.7 MCV 100.8 H MCH 35.0 H MCHC 34.7 RDW 14.6 Plt Count 246 MPV 9.7 Neut % (Auto) 46.5 Lymph % (Auto) 43.5 [place] % (Auto) 7.6 Eos % (Auto) 1.6 Baso % (Auto) 0.8 Neut # (Auto) 2.8 Lymph # (Auto) 2.6 [place] # (Auto) 0.5 Eos # (Auto) 0.1 Baso # (Auto) 0.0 WBC Differential . Differential Comment Auto diff final PT INR D-Dimer Quant (PE/DVT) Sodium 138 Potassium 4.1 Chloride 105 Carbon Dioxide 25.4 Anion Gap 8 BUN 18 Creatinine 0.81 Estimated GFR 74 L Random Glucose 94 Calcium 9.1 Magnesium 2.2 Total Bilirubin 0.2 AST 21 ALT 40 Alkaline Phosphatase 93 Total Creatine Kinase 70 54 Troponin I Less than 0.02 L Less than 0.02 L Total Protein 6.9 Albumin 4.0 Triglycerides Cholesterol LDL Cholesterol, Calc HDL Cholesterol Cholesterol/HDL Ratio TSH 1.320 Nasal Screen MRSA (PCR) Impressions ITS Impressions Chest X-Ray 03/13/18 11:51 CONCLUSION: No acute cardiopulmonary disease. Discharge Plan Discharge Disposition Patient Disposition: Discharge Home Discharge Condition Condition: Stable Discharge Order Discharge Orders: Discharge Order (Routine); Ordered 03/14/18 Ordered By: Lesley Eagle Cardiology Clear for Discharge (Routine); Ordered 03/13/18 Ordered By: Quincy Chavez Physicians Team ED Provider: Roger Mancuso Primary Care Provider: Michelle Rico Attending Provider: Jeanmarie Johnson Other Providers: Quincy Chavez Rxs /Orders / Referrals /Forms Prescriptions: Continue atorvastatin 20 mg Tablet 20 mg PO QPM RF: 0 atenolol 50 mg Tablet 50 mg PO DAILY RF: 0 primidone 50 mg Tablet 200 mg PO Q12H RF: 0 diazepam 2 mg Tablet 2 mg PO BID PRN (Reason: Anxiety) RF: 0 hydrochlorothiazide 25 mg Tablet 25 mg PO DAILY RF: 0 buspirone 15 mg Tablet 15 mg PO TID RF: 0 bupropion HCl 150 mg Tablet Extended Release 24 Hr 150 mg PO QAM RF: 0 [id number]-dkjn 50-300-40 mg Capsule 1 cap PO Q4H PRN (Reason: Migraine Headache) RF: 0 meloxicam 7.5 mg Tablet 7.5 mg PO DAILY RF: 0 Referrals: Michelle Rico MD [Primary Care Provider] - See Instructions (Follow up in 1 week) Benji Faulkner DO [Physician] - See Instructions (Follow up in 1-2 weeks) Discharge Instructions Patient Printed Instructions: Chest Pain (ED) Status ED Status: Admitted Observation Patient
[2018-03-14 12:50] VITALS: TEMP 97.9
[2018-03-14 13:43] VITALS: BP 127/65; PULSE 63; RESP 20
--- NOTE | 2018-03-14 13:55 | ECHRPT ---
Indication: Chest Pain CONCLUSIONS Normal left ventricular size. Mild concentric left ventricular hypertrophy. The left ventricular systolic function is normal with an estimated ejection fraction in the range of 55-60%. Trace mitral valve regurgitation. There is trace tricuspid valve regurgitation. The estimated pulmonary arterial pressure is 39 mmHg. BP: / HR: Rhythm: MEASUREMENTS (Male / Female) Normal Values Technical Quality:Fair 2D ECHO LV Diastolic Diameter PLAX 4.6 cm 4.2 - 5.9 / 3.9 - 5.3 cm LV Systolic Diameter PLAX 3.0 cm IVS Diastolic Thickness 1.1 cm 0.6 - 1.0 / 0.6 - 0.9 cm LVPW Diastolic Thickness 1.1 cm 0.6 - 1.0 / 0.6 - 0.9 cm LV Relative Wall Thickness 0.5 RV Internal Dim ED PLAX 2.4 cm LVOT Diameter 1.8 cm Aortic Root Diameter 3.2 cm LA Systolic Diameter LX 3.6 cm 3.0 - 4.0 / 2.7 - 3.8 cm DOPPLER AV Peak Velocity 152.0 cm/s AV Peak Gradient 9.2 mmHg LVOT Peak Velocity 125.0 cm/s LVOT Peak Gradient 6.3 mmHg AV Area Cont Eq pk 2.1 cm Mitral E Point Velocity 95.8 cm/s Mitral A Point Velocity 53.8 cm/s Mitral E to A Ratio 1.8 LV E' Lateral Velocity 16.5 cm/s Mitral E to LV E' Lateral Ratio 5.8 LV E' Septal Velocity 7.6 cm/s Mitral E to LV E' Septal Ratio 12.6 TR Peak Velocity 268.0 cm/s TR Peak Gradient 28.7 mmHg Right Atrial Pressure 10.0 mmHg Pulmonary Artery Systolic Pressu 38.7 mmHg Right Ventricular Systolic Press 38.7 mmHg PV Peak Velocity 106.0 cm/s PV Peak Gradient 4.5 mmHg FINDINGS LEFT VENTRICLE Normal left ventricular size. Mild concentric left ventricular hypertrophy. The left ventricular systolic function is normal with an estimated ejection fraction in the range of 55-60%. RIGHT VENTRICLE Normal right ventricular size and systolic function. LEFT ATRIUM The left atrial size is normal. RIGHT ATRIUM The right atrial size is normal. ATRIAL SEPTUM Normal atrial septal thickness without atrial level shunting by limited color doppler interrogation. AORTA The aortic root and proximal ascending aorta are normal in size on limited imaging. MITRAL VALVE Trace mitral valve regurgitation. AORTIC VALVE Trileaflet aortic valve. TRICUSPID VALVE There is trace tricuspid valve regurgitation. The estimated pulmonary arterial pressure is 39 mmHg. PULMONARY VALVE The pulmonary valve is not well visualized. VESSELS The inferior vena cava is normal in size. PERICARDIUM No pericardial effusion. Patrick Young MD (Electronically Signed) Final Date:14 March 2018 13:54
--- NOTE | 2018-03-14 14:30 | ECG ---
Date Performed: 03/13/2018 Time Performed: 12:10:29 PTAGE: 52 years EKG: SINUS BRADYCARDIA BORDERLINE ECG Since PREVIOUS TRACING , no significant change noted PREVIOUS TRACIN12/19/2014 10.59 DOCTOR: Romaine Zamorano Interpretating Date/Time 03/16/2018 08:04:26
--- NOTE | 2018-03-16 08:20 | ECG ---
Date Performed: 03/13/2018 Time Performed: 15:24:11 PTAGE: 52 years EKG: SINUS BRADYCARDIA BORDERLINE ECG Since PREVIOUS TRACING , no significant change noted PREVIOUS TRACIN03/13/2018 12.10 DOCTOR: Romaine Zamorano Interpretating Date/Time 03/16/2018 08:19:57
== END 2018-03-14 14:15 | disposition home or self-care (01) | DRG 287 ==
LOC: NEDA 11:19 → NEPC 11:19 → N03 13:00 → INTOOBSV 14:00 → OBSVTOIN 14:00 → NEPFCDU 15:58 → HCIS 18:28 → N03 20:15
PROVIDERS: ADMIT Hospitalist; ATTEND Hospitalist
CPT/HCPCS: 71010; 71045; 80053; 80061; 82550; 83735; 84443; 84484; 85025; 85379; 85610; 87641; 93005; 93306; 93458; 96360; 96361; 99152; 99285; C1769; C1893; G0378; J1200; J1644; J1720; J2060; J2250; J3010; J7030; Q9967